=== PATIENT | female | born 1945 | race Caucasian/White ===

== ENCOUNTER 2017-04-22 10:01 | Day surgery (SDC) | payer OTHER, MEDICARE ==
[2017-04-22 10:44] VITALS: BMI 35.6
[2017-04-22] MEDS ORDERED: PROPOFOL 20 ML ONE ×2 (11:24)
[2017-04-22 12:17] VITALS: TEMP 97.6
[2017-04-22 15:21] VITALS: BP 144/86; PULSE 79
--- NOTE | 2017-04-23 17:04 | PATH ---
Surgical Pathology Report Patient Name: NICCI POTTER [facility]. Rec. #: [id number] /Age/Gender: 1945 (Age: 71) / F Account: [id number] Location: ASU-ENDOSCOPY Taken: 04/22/2017 Received: 04/22/2017 Reported: 04/23/2017 Physicians: Bassam Aburto M.D. Specimen(s) Received BX ANASTOMOSIS RIGHT SIDE Clinical History Preoperative diagnosis: Malignant tumor of colon Postoperative diagnosis: Normal anastomosis right scar, colonic retention, redundant severe diverticulosis, second degree hemorrhoids, diverticulosis descending colon Final Diagnosis ANASTOMOSIS, RIGHT, BIOPSY: SMALL BOWEL AND COLONIC MUCOSA WITH MILD CHRONIC INFLAMMATION CONSISTENT WITH ANASTOMOTIC SITE. Electronically Signed Dari Stewart M.D. Gross Description Received in formalin, labeled "biopsy anastomosis right side" are 4 alcazar, irregular portions of soft tissue ranging from 0.3-0.9 cm. in greatest dimension. The specimens are submitted in toto in one cassette. 04/22/201704/22/2017
== END 2017-04-22 13:20 | disposition home or self-care (01) ==
LOC: JASU-ENDO 10:01
PROVIDERS: ATTEND Internal Medicine Gastroenterology
PROC: 0DBB8ZX Excision of Ileum, Via Natural or Artificial Opening Endoscopic, Diagnostic (ICD-10-PCS; principal; 2017-04-22 11:00)
DX: Z12.11 Encounter for screening for malignant neoplasm of colon (principal); Z86.010 Personal history of colon polyps; K57.30 Diverticulosis of large intestine without perforation or abscess without bleeding; K64.8 Other hemorrhoids; K63.89 Other specified diseases of intestine; Z98.0 Intestinal bypass and anastomosis status
CPT/HCPCS: 88305-TC

== ENCOUNTER 2017-11-09 19:07 | Inpatient (IN) | payer OTHER, MEDICARE ==
--- NOTE | 2017-11-09 19:26 | PDOC ---
Rapid Medical Evaluation Time Seen by Provider: 11/09/17 19:23 Medical Evaluation: Allergies Allergy/AdvReac Type Severity Reaction Status Date / Time hydroxyzine HCl Allergy Verified 11/14/14 18:51 [From Vistaril] hydroxyzine pamoate Allergy Verified 11/14/14 18:51 [From Vistaril] levothyroxine sodium Allergy Vomiting Verified 11/28/14 14:57 [From Synthroid] meperidine HCl [From Demerol] Allergy Verified 11/14/14 18:51 Penicillins Allergy Verified 11/14/14 18:51 metformin AdvReac Nausea Verified 11/28/14 14:57 ADHESIVE TAPE Allergy Severe Hives Uncoded 11/28/14 14:57 11/09/17 19:24 72 year old female with Stage IV colon ca (completed chemotherapy, follows with Dr. Vargas), and AAA s/p repair with aortic stent graft 03/2015 who presents with several weeks of abdominal pain and poor appetite. Also complains of left shoulder and back pain which she describes as "minor." Outpatient abdominal u/s shows increased aneurysmal dilation of the aorta, 6.2cm in widest AP diameter. Sent by Dr. Vargas for further evaluation. -EKG -Labs -CT CAP with runoff -To Main ED for further evaluation
--- NOTE | 2017-11-09 20:32 | PDOC ---
History of Present Illness - General Chief Complaint: Pain Stated Complaint: PCP SENT Time Seen by Provider: 11/09/17 19:23 - History of Present Illness Initial Comments: 11/09/17 20:30 Ms. Schreiber is a 72 yo female w/ pmh of stage 4 colon cancer (completed chemo in May and follows w/ Dr. Vargas), s/p AAA repair w/ aortic graft in march 26, DMII, HTN, and obesity who presents on direction of Dr. Vargas for evaluation of r/o AAA problems. Patient reports she had a PET scan 3 months ago to evaluate for cancer progression which showed a AAA at approximately 4cm; US earlier this week to evaluate right sided abdominal pain she has been having recently showed 6.2 cm aorta. Ms. Schreiber also reports recent history of left shoulder pain. The patient denies chest pain, shortness of breath, headache and dizziness. Denies fever, chills, nausea, vomit, diarrhea and constipation. Denies dysuria, frequency, urgency and hematuria. Allergies: Hydroxyzine, levothyroxine, meperidine, penicillin, metformin Past History - Past Medical History Allergies/Adverse Reactions: Allergies Allergy/AdvReac Type Severity Reaction Status Date / Time hydroxyzine HCl Allergy Verified 11/09/17 19:29 [From Vistaril] hydroxyzine pamoate Allergy Verified 11/09/17 19:29 [From Vistaril] levothyroxine sodium Allergy Vomiting Verified 11/09/17 19:29 [From Synthroid] meperidine HCl [From Demerol] Allergy Verified 11/09/17 19:29 Penicillins Allergy Verified 11/09/17 19:29 metformin AdvReac Nausea Verified 11/09/17 19:29 ADHESIVE TAPE Allergy Severe Hives Uncoded 11/09/17 19:29 Home Medications: Ambulatory Orders Pravastatin Sodium [Pravachol -] 40 mg PO HS 03/18/14 Quinapril HCl [Accupril -] 10 mg PO DAILY 03/18/14 Aspirin Coated [Ecotrin -] 81 mg PO DAILY #0 tablet.ec 11/29/14 Isosorbide Mononitrate [Imdur -] 10 mg PO BID 04/11/15 Acetaminophen [Tylenol .Extra-Strength -] 1,000 mg PO Q6H PRN 11/29/17 Metoprolol Succinate [Toprol XL -] 25 mg PO DAILY 04/22/17 Thyroid [[place] Thyroid] 105 mg PO DAILY 04/22/17 Anemia: Yes Cancer: (BENIGN TUMORS LT BREAST) Cardiac Disorders: Yes (Prinzmetal angina; AAA) COPD: Yes Diabetes: No GI Disorders: Yes HTN: Yes Hypercholesterolemia: Yes Thyroid Disease: Yes (hypothyroidism, stella) - Surgical History Abdominal Surgery: Yes (HERNIA X 4; ABD. AORTA REPAIR) Cardiac Surgery: Yes (Aortic aneursym and stents in place) Neurologic Surgery: Yes (DECOMPRESSION OF TIBIA NERVE) - Immunization History Immunization Up to Date: Yes - Suicide/Smoking/Psychosocial Hx Smoking History: Former smoker Have you smoked in the past 12 months: Yes If you are a former smoker, when did you quit?: 02/2014 Information on smoking cessation initiated: No Hx Alcohol Use: No Drug/Substance Use Hx: No Substance Use Type: None Hx Substance Use Treatment: No Review of Systems - Review of Systems Comments:: 11/09/17 20:32 GENERAL/CONSTITUTIONAL: No fever or chills. No weakness. HEAD, EYES, EARS, NOSE AND THROAT: No change in vision. No ear pain or discharge. No sore throat. CARDIOVASCULAR: No chest pain or shortness of breath RESPIRATORY: No cough, wheezing, or hemoptysis. GASTROINTESTINAL: +Right sided abdominal pain for "a few weeks." No nausea, vomiting, diarrhea or constipation. GENITOURINARY: No dysuria, frequency, or change in urination. MUSCULOSKELETAL: +1-2 weeks of left shoulder/back pain. No joint or muscle swelling or pain. SKIN: No rash NEUROLOGIC: No headache, vertigo, loss of consciousness, or change in strength/ sensation. ENDOCRINE: No increased thirst. No abnormal weight change HEMATOLOGIC/LYMPHATIC: No anemia, easy bleeding, or history of blood clots. ALLERGIC/IMMUNOLOGIC: No hives or skin allergy. *Physical Exam - Vital Signs Last Vital Signs Temp Pulse Resp BP Pulse Ox 98.9 F 94 H 18 152/92 96 11/09/17 19:21 11/09/17 19:21 11/09/17 19:21 11/09/17 19:21 11/09/17 19:21 - Physical Exam Comments: 11/09/17 20:32 GENERAL: +Patient morbidly obese. Awake, alert, and fully oriented, in no acute distress HEAD: No signs of trauma, normocephalic, atraumatic EYES: PERRLA, EOMI, sclera anicteric, conjunctiva clear ENT: Auricles normal inspection, hearing grossly normal, nares patent, oropharynx clear without exudates. Moist mucosa NECK: Normal ROM, supple, no lymphadenopathy, JVD, or masses LUNGS: No distress, speaks full sentences, clear to auscultation bilaterally HEART: Regular rate and rhythm, normal S1 and S2, no murmurs, rubs or gallops, peripheral pulses normal and equal bilaterally. ABDOMEN: +Significant scarring from previous procedures. Soft, nontender, normoactive bowel sounds. No guarding, no rebound. No masses EXTREMITIES: Normal inspection, Normal range of motion, no edema. No clubbing or cyanosis. NEUROLOGICAL: Cranial nerves II through XII grossly intact. Normal speech, normal gait, no focal sensorimotor deficits SKIN: Warm, Dry, normal turgor, no rashes or lesions noted. ED Treatment Course - LABORATORY CBC & Chemistry Diagram: 11/10/17 08:10 11/10/17 08:10 Medical Decision Making - Medical Decision Making 11/09/17 23:53 Ms. Schreiber is a 72 yo female w/ pmh as described who presents for evaluation of previously noted AAA. Patient noted to have difference of systolic blood pressure of 30 points (160 left arm, 190 right arm). Workup started for evaluation of AAA. BP lowered with labetalol 5 to 140's systolic. Patient signed off to Dr. Box for further evaluation. *DC/Admit/Observation/Transfer Diagnosis at time of Disposition: Leg pain Qualifiers: Laterality: right Qualified Code(s): M79.604 - Pain in right leg Back pain Qualifiers: Back pain location: low back pain Chronicity: acute Back pain laterality: right Sciatica presence: without sciatica Qualified Code(s): M54.5 - Low back pain - Discharge Dispostion Condition at time of disposition: Stable - Referrals - Patient Instructions - Post Discharge Activity
--- NOTE | 2017-11-09 20:44 | PDOC ---
Attending Attestation - HPI HPI: 11/09/17 20:59 The patient is a 72 year old female, with a significant past medical history of Stage IV colon ca (completed chemotherapy), and AAA s/p repair with aortic stent graft (03/2015), who presents to the emergency department with, abdominal pain and decreased appetite. As per patient, she has had an outpatient abdominal ultrasound which depicted an increased aneurysmal dilation of her aorta which was 6.2 cm in the widest AP diameter. She reports left shoulder and back pain, which she considers as minimal. The patient was sent over by Dr. Vargas for further evaluation. She denies recent fevers, chills, headache or dizziness. She denies recent nausea, vomit, diarrhea or constipation. She denies recent dysuria, frequency, urgency or hematuria. She denies recent chest pain or shortness of breath. Social history: Former smoker. Denies EtOH use and recreational drug use. <Saadia Del Toro - Last Filed: 11/09/17 20:59> - Resident Resident Name: Martin Candelario - ED Attending Attestation I have performed the following: I have examined & evaluated the patient, The case was reviewed & discussed with the resident, I agree w/resident's findings & plan, Exceptions are as noted - Physicial Exam PE: 11/09/17 20:45 *Physical Exam General Appearance: Yes: Appropriately Dressed. No: Apparent Distress, Intoxicated HEENT: positive: EOMI, SINAN, Normal ENT Inspection, Normal Voice, TMs Normal, Pharynx Normal. negative: Pale Conjunctivae, Photophobia, Scleral Icterus (R), Scleral Icterus (L) Neck: positive: Trachea midline, Normal Thyroid, Supple. negative: Tender, Rigid, Carotid bruit, Stridor, Lymphadenopathy (R), Lymphadenopathy (L), Thyromegaly Respiratory/Chest: positive: Lungs Clear, Normal Breath Sounds. negative: Chest Tender, Respiratory Distress, Accessory Muscle Use, Labored Respiration, RES, Crackles, Rales, Rhonchi, Stridor, Wheezing, Dullness Cardiovascular: positive: Regular Rhythm, Regular Rate, S1, S2. negative: Edema , JVD, Murmur, Bradycardia, Tachycardia Vascular Pulses: Dorsalis-Pedis (R): 2+, Doralis-Pedis (L): 2+ Gastrointestinal/Abdominal: positive: Normal Bowel Sounds, Flat, Soft. negative : Tender, Organomegaly, Pulsatile Mass, Increased Bowel Sounds, Decreased BS, Distended, Guarding, Rebound, Hernia, Hepatomegaly, Spleenomegaly Lymphatic: negative: Adenopathy, Tenderness Musculoskeletal: positive: Normal Inspection. negative: CVA Tenderness, Decreased Range of Motion Extremity: positive: Normal Capillary Refill, Normal Inspection, Normal Range of Motion, Pelvis Stable. negative: Tender, Pedal Edema, Swelling, Erythema Integumentary: positive: Normal Color, Dry, Warm. negative: Cyanotic, Erythema , Jaundice, Rash Neurologic: positive: director of outside sales II-XII NML intact, Fully Oriented, Alert, Normal Mood/ Affect, Motor Strength 5/5. negative: EOM Palsy, Facial Droop, Sensory Deficit - Medical Decision Making 11/10/17 19:23 Pt was admitted for further care <Dean Rousseau - Last Filed: 11/10/17 19:23> Attestations - Attestations 11/09/17 20:59 Documentation prepared by Saadia Del Toro, acting as nuclear medicine medical director for Dean Rousseau DO. <Saadia Del Toro - Last Filed: 11/09/17 20:59>
[2017-11-09] MEDS ORDERED: LABETALOL HCL 5 MG/1 ML (100MG/20 ML VIAL) IVPUSH ONE (20:48)
[2017-11-09 21:09] LABS: BASO % 0.9 % (0-2.0); EOS % 3.2 % (0-4.5); HEMATOCRIT 38.4 % (32.4-45.2); HEMOGLOBIN 12.9 GM/dL (10.7-15.3); LYMPH % 18.8 % (8-40); MCH 31.3 pg (25.7-33.7); MCHC 33.7 g/dl (32.0-36.0); MEAN CELL VOLUME 93.1 fl (80-96); MEAN PLT VOLUME 7.6 fl (7.5-11.1); MONO % 8.8 % (3.8-10.2); NEUT % 68.3 % (42.8-82.8); PLATELET COUNT 228 K/MM3 (134-434); RBC 4.13 M/mm3 (3.60-5.2); RDW 14.9 % (11.6-15.6); WHITE BLOOD COUNT 6.3 K/mm3 (4.0-10.0)
[2017-11-09 21:35] LABS: INR 1.1 (0.82-1.09); PROTHROMBIN TIME (PATIENT) 12.4 SEC (9.7-13.0)
[2017-11-09 21:57] LABS: ALBUMIN 3.7 g/dl (3.4-5.0); ANION GAP 9 (8-16); BLOOD UREA NITROGEN 12 mg/dL (7-18); CALCIUM 9.6 mg/dL (8.5-10.1); CHLORIDE 101 mmol/L (98-107); CO2 26 mmol/L (21-32); CREATININE 0.8 mg/dL (0.55-1.02); GLUCOSE,RANDOM 81 mg/dL (74-106); POTASSIUM 4.3 mmol/L (3.5-5.1); SGOT/AST 51 U/L (15-37); SGPT/ALT 46 U/L (12-78); SODIUM 136 mmol/L (136-145); TOT PROT 8.2 g/dl (6.4-8.2)
[2017-11-09 22:23] LABS: ALK PHOS 86 U/L (45-117); BILIRUBIN,TOTAL 0.3 mg/dL (0.2-1.0)
--- NOTE | 2017-11-10 01:28 | HP ---
CHIEF COMPLAINT: R-sided abdominal pain PCP: Not on staff HISTORY OF PRESENT ILLNESS: 72 yo female with pmh of stage 4 cancer (finished chemo in may 2017), AAA repair with graft (Mar 2015), DM2, HTN, who presents with two weeks of persistent R sided abdominal pain. Pt states she began having sharp R sided abdominal pain two weeks ago, sharp with associated burning sensation, in addition to accompanying L shoulder pain. She states that laying down tends to alleviate pain, but prolonged immobilization worsens the pain. No other radiation, exacerbating/alleviating factors. Pain is not associated with food. Of note, pt received abdominal u/s one week ago per Dr. Vargas for further evaluation of abdominal pain, notable for AAA of 6.2cm diameter, an increase from 4.9cm on prior PET scan 3 months ago. Pt presented to ED for further imaging evaluation of abdominal pain per Dr. Vargas given recent imaging findings. Pt also endorses 10 months of worsening diffuse claudication in R leg , worsened by exercise and occurring after half a block of ambulation. Pt only takes ASA for AC. Pt denies FERNANDEZ, vision changes, chest pain, SOB, N/V, fever/chills, cough, back pain, dysuria, hematuria, melena, hematochezia, diarrhea, FNDs. She does endorse occasional LE swelling in R leg due to venous insufficiency and infrequent loose bowels. ER course was notable for: (1)No lab abnormalities (2)R arm BP 191/92, L arm BP 160/107; received 5mg IV labetalol with correction to 140s systolic (3)Chest/Abdominal CTA Recent Travel: None PAST MEDICAL HISTORY: HTN DM2 Stage 4 colon Ca (chemo in May) AAA repair in Mar 2015 Obesity Jeniffer hypothyroidism HLD Anemia PAST SURGICAL HISTORY: Hernias x4 AAA repair Decompression of tibial nerve Social History: Smoking: Former smoker, 10 years ago Alcohol: Denies Drugs: Denies Family History: [place] Allergies hydroxyzine HCl [From Vistaril] Allergy (Verified 11/09/17 19:29) hydroxyzine pamoate [From Vistaril] Allergy (Verified 11/09/17 19:29) levothyroxine sodium [From Synthroid] Allergy (Verified 11/09/17 19:29) Vomiting meperidine HCl [From Demerol] Allergy (Verified 11/09/17 19:29) Penicillins Allergy (Verified 11/09/17 19:29) metformin Adverse Reaction (Verified 11/09/17 19:29) Nausea ADHESIVE TAPE Allergy (Severe, Uncoded 11/09/17 19:29) Hives HOME MEDICATIONS: Home Medications Medication Instructions Recorded Pravastatin Sodium [Pravachol -] 40 mg PO HS 03/18/14 Quinapril HCl [Accupril -] 10 mg PO BID 03/18/14 Aspirin Coated [Ecotrin -] 81 mg PO DAILY #0 tablet.ec 11/29/14 Isosorbide Mononitrate [Imdur -] 10 mg PO DAILY 04/11/15 Acetaminophen [Tylenol 1,000 mg PO Q6H PRN 04/22/17 .Extra-Strength -] Metoprolol Succinate [Toprol XL -] 12.5 mg PO BID 04/22/17 Thyroid [[place] Thyroid] 90 mg PO DAILY 04/22/17 REVIEW OF SYSTEMS CONSTITUTIONAL: Absent: fever, chills, diaphoresis, generalized weakness, malaise, loss of appetite, weight change HEENT: Absent: rhinorrhea, nasal congestion, throat pain, throat swelling, difficulty swallowing, mouth swelling, ear pain, eye pain, visual changes CARDIOVASCULAR: + claudications Absent: chest pain, syncope, palpitations, irregular heart rate, lightheadedness , peripheral edema RESPIRATORY: Absent: cough, shortness of breath, dyspnea with exertion, orthopnea, wheezing, stridor, hemoptysis GASTROINTESTINAL: +abdominal pain Absent: abdominal distension, nausea, vomiting, diarrhea, constipation, melena , hematochezia GENITOURINARY: Absent: dysuria, frequency, urgency, hesitancy, hematuria, flank pain, genital pain MUSCULOSKELETAL: + L shoulder pain Absent: myalgia, arthralgia, joint swelling, back pain, neck pain SKIN: Absent: rash, itching, pallor HEMATOLOGIC/IMMUNOLOGIC: Absent: easy bleeding, easy bruising, lymphadenopathy, frequent infections ENDOCRINE: Absent: unexplained weight gain, unexplained weight loss, heat intolerance, cold intolerance NEUROLOGIC: Absent: headache, focal weakness or paresthesias, dizziness, unsteady gait, seizure, mental status changes, bladder or bowel incontinence PSYCHIATRIC: Absent: anxiety, depression, suicidal or homicidal ideation, hallucinations. PHYSICAL EXAMINATION Vital Signs - 24 hr 11/09/17 11/09/17 11/09/17 19:08 19:21 21:04 Temperature 98.9 F Pulse Rate 94 H Pulse Rate [ 97 H 99 H Radial] Respiratory 17 18 17 Rate Blood Pressure 152/92 Blood Pressure 160/107 [Left Arm] Blood Pressure 191/92 [Right Arm] O2 Sat by Pulse 96 98 Oximetry (%) GENERAL: Elderly obese woman, Awake, alert, and fully oriented, in no acute distress. HEAD: Normal with no signs of trauma. EYES: Pupils equal, round and reactive to light, extraocular movements intact, sclera anicteric, conjunctiva clear. No lid lag. EARS, NOSE, THROAT: Ears normal, nares patent, oropharynx clear without exudates. Moist mucous membranes. NECK: Normal range of motion, supple without lymphadenopathy, JVD, or masses. LUNGS: Breath sounds equal, clear to auscultation bilaterally. No wheezes, and no crackles. No accessory muscle use. HEART: Regular rate and rhythm, normal S1 and S2 without murmur, rub or gallop. ABDOMEN: TTP in RUQ/RLQ. Soft, not distended, normoactive bowel sounds, no guarding, no rebound, no masses. No hepatomegaly or splenomegaly. MUSCULOSKELETAL: Normal range of motion at all joints. No bony deformities or tenderness. No CVA tenderness. UPPER EXTREMITIES: 2+ pulses, warm, well-perfused. No cyanosis. No clubbing. No peripheral edema. LOWER EXTREMITIES: 1+ DP, PT pulse on R leg. 2+ DP/PT pulses on L leg. warm, well-perfused. No calf tenderness. No peripheral edema. NEUROLOGICAL: Cranial nerves II-XII intact. Normal speech. Gait not evaluated. Slight decreased sensation to palpation of dorsal surface of R foot. PSYCHIATRIC: Cooperative. Good eye contact. Appropriate mood and affect. SKIN: Warm, dry, normal turgor, no rashes or lesions noted, normal capillary refill. Laboratory Results - last 24 hr CBC, BMP 11/09/17 20:53 11/09/17 20:53 11/09/17 11/09/17 11/09/17 20:53 20:53 20:53 WBC 6.3 RBC 4.13 D Hgb 12.9 D Hct 38.4 D MCV 93.1 MCH 31.3 D MCHC 33.7 RDW 14.9 D Plt Count 228 D MPV 7.6 Absolute Neuts (auto) 4.3 Neutrophils % 68.3 Lymphocytes % 18.8 Monocytes % 8.8 Eosinophils % 3.2 Basophils % 0.9 Nucleated RBC % 0 PT with INR 12.40 INR 1.10 Sodium 136 Potassium 4.3 Chloride 101 Carbon Dioxide 26 Anion Gap 9 BUN 12 Creatinine 0.8 Creat Clearance w eGFR > 60 Random Glucose 81 Calcium 9.6 Total Bilirubin 0.3 AST 51 H ALT 46 Alkaline Phosphatase 86 Troponin I < 0.02 Total Protein 8.2 Albumin 3.7 Blood Type Antibody Screen 11/09/17 20:53 WBC RBC Hgb Hct MCV MCH MCHC RDW Plt Count MPV Absolute Neuts (auto) Neutrophils % Lymphocytes % Monocytes % Eosinophils % Basophils % Nucleated RBC % PT with INR INR Sodium Potassium Chloride Carbon Dioxide Anion Gap BUN Creatinine Creat Clearance w eGFR Random Glucose Calcium Total Bilirubin AST ALT Alkaline Phosphatase Troponin I Total Protein Albumin Blood Type B POSITIVE Antibody Screen Negative No cultures Thoracic/Abdominal CTA - IMPRESSION: No definite interval change is identified in comparison to a prior CT study of 12/04/2014. There is no CT evidence of aortic aneurysm or dissection. At least moderate atherosclerotic coronary artery calcifications are noted. IMPRESSION: In comparison to a prior CT study 12/04/2014 note is again made of endovascular repair of an infrarenal aortic aneurysm. The right iliac portion of the stent graft demonstrates interval thrombosis. The aneurysm sac appears mildly diminished in size currently measuring 5.3 cm, previously 5.7 cm. Interval resection of neoplastic disease is seen involving the ascending colon. There has been interval resolution of a necrotic 3.7 cm paracaval retroperitoneal lymph node. Development of a small to moderate periumbilical hernia is seen containing fat only. A possible 1 cm hypodense pancreatic head lesion described on MRI of 12/08/2014 cannot be appreciated on the current exam. Correlation with follow-up nonemergent contrast-enhanced MRI is suggested. Diffuse hepatic steatosis. Stable 1 cm right hepatic lobe cyst. ASSESSMENT/PLAN: 72 yo female with pmh of stage 4 cancer (finished chemo in may 2017), AAA repair with graft (Mar 2015), DM2, HTN, who presents with two weeks of persistent R sided abdominal pain. Abdominal CT notable for R iliac artery graft thrombosis. Plan for heparin gtt and vascular consult in the morning for further management. Currently with preserved perfusion of R LE. 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 Fuller - Serial pulse checks q4h - consider arterial doppler to evaluate distal blood flow #Abdominal pain - likely secondary to AAA, R iliac occlusion - Pain control with PO tylenol - vascular surgery consulted - Zofran PRN #Mass in head of pancreas - as noted above - GI consult - will likely require outpt f/u - consider abdominal MRI for further evaluation #HTN - c/w home HTN meds #HLD - c/w home statin #DM2 - A1C - ISS - BGM q4h #Hypothyroidism - c/w home synthroid PPX Heparin gtt FEN PO fluids Daily lytes Diabetic diet Plan discussed with attending, Dr. Micheline Coulter, PGY1 Visit type - Emergency Visit Emergency Visit: Yes ED Registration Date: 11/10/17 Care time: The patient presented to the Emergency Department on the above date and was hospitalized for further evaluation of their emergent condition. - New Patient This patient is new to me today: Yes Date on this admission: 11/12/17 - Critical Care Critical Care patient: No Hospitalist Screening - Colonoscopy Questionnaire Colonoscopy Questionnaire: Colonoscopy Questionnaire - Patient: 50 - 75 years old and never had a screening colonoscopy: Unknown History of colon or rectal polyps, or CA: Unknown History of IBD, Crohn's disease or UC: Unknown History of abdominal radiation therapy as a child: Unknown - Relative: 1 with colon or rectal CA, or polyps at age 60 or younger: Unknown Colon or rectal CA diagnosed at age 45 or younger: Unknown Multiple relatives with colon or rectal CA: Unknown - Outcome: Screening Result: Negative Screen
--- NOTE | 2017-11-10 01:42 | PDOC ---
*Physical Exam - Vital Signs Last Vital Signs Temp Pulse Resp BP Pulse Ox 98.9 F 99 H 17 160/107 98 11/09/17 19:21 11/09/17 21:04 11/09/17 21:04 11/09/17 21:04 11/09/17 21:04 ED Treatment Course - LABORATORY CBC & Chemistry Diagram: 11/09/17 20:53 11/09/17 20:53 - ADDITIONAL ORDERS Additional order review: Laboratory Results 11/09/17 11/09/17 11/09/17 20:53 20:53 20:53 PT with INR 12.40 INR 1.10 Sodium 136 Potassium 4.3 Chloride 101 Carbon Dioxide 26 Anion Gap 9 BUN 12 Creatinine 0.8 Creat Clearance w eGFR > 60 Random Glucose 81 Calcium 9.6 Total Bilirubin 0.3 AST 51 H ALT 46 Alkaline Phosphatase 86 Troponin I < 0.02 Total Protein 8.2 Albumin 3.7 Blood Type B POSITIVE Antibody Screen Negative 11/09/17 20:53 RBC 4.13 D MCV 93.1 MCHC 33.7 RDW 14.9 D MPV 7.6 Neutrophils % 68.3 Lymphocytes % 18.8 Monocytes % 8.8 Eosinophils % 3.2 Basophils % 0.9 - Medications Given in the ED: ED Medications Discontinued Medications Generic Name Dose Route Start Last Admin Trade Name Freq PRN Reason Stop Dose Admin Labetalol HCl 5 mg 11/09/17 20:48 11/09/17 21:31 Normodyne Injection - IVPUSH 11/09/17 20:49 5 mg ONCE ONE Administration Medical Decision Making - Medical Decision Making Patient signed out pending CT read. There was notation of a new right iliac thrombosis but according to Dr. Garsia she had a bypass because of this. Patient is having symptoms on that side so this could be the reason for her pain. Per Dr. Garsia we deferred initiation of heparin. Patient admitted under Dr. oTbias for obs. 11/10/17 01:37 *DC/Admit/Observation/Transfer Diagnosis at time of Disposition: Leg pain Qualifiers: Laterality: right Qualified Code(s): M79.604 - Pain in right leg Back pain Qualifiers: Back pain location: low back pain Chronicity: acute Back pain laterality: right Sciatica presence: without sciatica Qualified Code(s): M54.5 - Low back pain - Discharge Dispostion Condition at time of disposition: Stable Decision to Admit order: Yes - Referrals - Patient Instructions - Post Discharge Activity
[2017-11-10] MEDS ORDERED: ACETAMINOPHEN 500 MG TABLET (FP) PO PRN (03:00)
[2017-11-10] MEDS ORDERED: HEPARIN NA (PORCINE) 5,000 UNITS/ML 1ML VIAL IVPUSH PRN ×2 (03:06)
[2017-11-10] MEDS ORDERED: HEPARIN SOD,PORK IN 0.45% NACL 25,000 UNITS/500 ML INFUS.BAG IVPB SCH (03:15)
[2017-11-10] MEDS ORDERED: ONDANSETRON 4 MG/2 ML VIAL IVPUSH PRN (03:20)
--- NOTE | 2017-11-10 03:42 | PN ---
Teaching Attending Note Name of Resident: Manan Coulter ATTENDING PHYSICIAN STATEMENT I saw and evaluated the patient. I reviewed the resident's note and discussed the case with the resident. I agree with the resident's findings and plan as documented. SUBJECTIVE: Patient is a 72 year old woman with pmh of stage 4 colon cancer (finished chemo in may 2017; s/p resection), AAA repair with graft (Mar 2015), DM2, HTN, who presents with two weeks of persistent R sided abdominal pain. She began having sharp R sided abdominal pain two weeks ago, with associated burning sensation, in addition to left shoulder pain. Lying down tends to alleviate pain, but prolonged immobilization worsens the pain. She had an abdominal sosnogram one week ago (per Dr. Vargas) for further evaluation of abdominal pain, notable for AAA of 6.2cm diameter, an increase from 4.9cm on prior PET scan 3 months ago. Patient presented to ED for further imaging evaluation of abdominal pain per Dr. Vargas given recent imaging findings. OBJECTIVE: Alert and in no acute distress Vital Signs Period Temp Pulse Resp BP Sys/Bey Pulse Ox Last 24 Hr 98.9 F 94-99 17-18 152-191/92-107 96-98 HEENT: No Jaundice, eye redness or discharge, PERRLA, EOMI. Normocephalic, atraumatic. External ears are normal and hearing is grossly intact. No nasal discharge. Neck: Supple, nontender. No palpable adenopathy or thyromegaly. No JVD Chest: Good effort. Clear to auscultation and percussion. Heart: Regular. No S3, rub or murmur Abdomen: Not distended, soft, RLQ and RUQ tenderness; no HSM. No rebound or guarding. Normoactive bowel sounds. Ext: Peripheral pulses intact. No leg edema. Skin: Warm and dry. No petechiae, rash or ecchymosis. Neuro: Alert. Oriented x3. CN 2-12 grossly intact. Sensation grossly intact in all four extremities and DTR are symmetric. Current Medications Generic Name Dose Route Start Last Admin Trade Name Freq PRN Reason Stop Dose Admin Acetaminophen 1,000 mg 11/10/17 03:00 Tylenol - PO Q6H PRN PAIN Aspirin 81 mg 11/10/17 10:00 Ecotrin - PO DAILY ADILIA Heparin Sodium (Porcine) 1,000 unit 11/10/17 03:06 Heparin - IVPUSH PRN PRN Heparin Heparin Sodium (Porcine) 5,000 unit 11/10/17 03:06 Heparin - IVPUSH PRN PRN Heparin Heparin Sodium (Porcine) 25, 500 mls @ 20 mls/hr 11/10/17 03:15 000 unit/ Sodium Chloride IV TITR [facility] Protocol 1,000 UNIT/HR Insulin Aspart 1 vial 11/10/17 07:00 Novolog Vial Sliding Scale - SQ ACHS [facility] Protocol Isosorbide Mononitrate 10 mg 11/10/17 10:00 Imdur - PO DAILY [facility] Metoprolol Succinate 12.5 mg 11/10/17 10:00 Toprol Xl - PO BID [facility] Non-Formulary Medication 40 mg 11/10/17 22:00 Pravastatin Sodium PO HS [facility] Ondansetron HCl 4 mg 11/10/17 03:20 Zofran Injection IVPUSH Q6H PRN NAUSEA Quinapril HCl 10 mg 11/10/17 10:00 Accupril - PO BID [facility] Thyroid 90 mg 11/10/17 10:00 [place] Thyroid - PO DAILY [facility] Home Medications Medication Instructions Recorded Pravastatin Sodium [Pravachol -] 40 mg PO HS 03/18/14 Quinapril HCl [Accupril -] 10 mg PO BID 03/18/14 Aspirin Coated [Ecotrin -] 81 mg PO DAILY #0 tablet.ec 11/29/14 Isosorbide Mononitrate [Imdur -] 10 mg PO DAILY 04/11/15 Acetaminophen [Tylenol 1,000 mg PO Q6H PRN 04/22/17 .Extra-Strength -] Metoprolol Succinate [Toprol XL -] 12.5 mg PO BID 04/22/17 Thyroid [[place] Thyroid] 90 mg PO DAILY 04/22/17 Abnormal Lab Results 11/09/17 20:53 AST 51 H ASSESSMENT AND PLAN: 1. Right Iliac Stent Thrombosis - CTA of chest, abdomen and pelvis showed right iliac stent thrombosis. Will commence full dose IV heparin for anticoagulation, consult [facility]/Onc and vascular surgery. Tylenol for pain control. There was no dissection of aortic aneurysm but she has hepatic steatosis, a nodule in the head of the pancreas and cyst in the right lobe of the liver. Will consult GI for further workup. 2. DM - Sliding scale insulin coverage. 3. Uncontrolled hypertension - Adjust antihypertensive regimen to attain normotension. 4. DVT prophylaxis - On IV Heparin drip 5. Advance directives - Full code
[2017-11-10 05:26] VITALS: BMI 38.3
[2017-11-10] MEDS: INSULIN SLIDING SCALE (NOVOLOG) 1 VIAL SQ SCH ×3 (06:55→16:46)
[2017-11-10 08:27] LABS: BASO % 0.7 % (0-2.0); EOS % 2.3 % (0-4.5); HEMATOCRIT 36.9 % (32.4-45.2); HEMOGLOBIN 12.4 GM/dL (10.7-15.3); LYMPH % 23.7 % (8-40); MCH 31.5 pg (25.7-33.7); MCHC 33.7 g/dl (32.0-36.0); MEAN CELL VOLUME 93.3 fl (80-96); MEAN PLT VOLUME 7.5 fl (7.5-11.1); MONO % 8.7 % (3.8-10.2); NEUT % 64.6 % (42.8-82.8); PLATELET COUNT 192 K/MM3 (134-434); RBC 3.95 M/mm3 (3.60-5.2); RDW 14.9 % (11.6-15.6); WHITE BLOOD COUNT 5.5 K/mm3 (4.0-10.0)
[2017-11-10 08:44] LABS: INR 1.18 (0.82-1.09); PROTHROMBIN TIME (PATIENT) 13.3 SEC (9.7-13.0)
[2017-11-10 08:46] LABS: ACTIVATED PTT 32.5 SECONDS (25.2-36.5)
[2017-11-10 08:55] LABS: ALBUMIN 3.4 g/dl (3.4-5.0); ANION GAP 11 (8-16); BLOOD UREA NITROGEN 10 mg/dL (7-18); CHLORIDE 100 mmol/L (98-107); CO2 24 mmol/L (21-32); GLUCOSE,RANDOM 137 mg/dL (74-106); SGPT/ALT 40 U/L (12-78); SODIUM 135 mmol/L (136-145)
[2017-11-10 08:58] LABS: ALK PHOS 67 U/L (45-117); BILIRUBIN,TOTAL 0.4 mg/dL (0.2-1.0); CALCIUM 8.8 mg/dL (8.5-10.1); CREATININE 0.9 mg/dL (0.55-1.02); TOT PROT 7.5 g/dl (6.4-8.2)
[2017-11-10 09:06] LABS: POTASSIUM 4.3 mmol/L (3.5-5.1); SGOT/AST 50 U/L (15-37)
[2017-11-10] MEDS ORDERED: PT OWN MED DRAWER 7, Y5N ONE (09:19)
[2017-11-10] MEDS ORDERED: metoPROLOL SUCCINATE 25 MG TAB.SR.24H (FP) PO SCH (10:00)
[2017-11-10] MEDS ORDERED: THYROID 30 MG TABLET PO SCH (10:00)
[2017-11-10] MEDS ORDERED: ISOSORBIDE MONONITRATE 10 MG TABLET PO SCH (10:00)
[2017-11-10] MEDS ORDERED: ASPIRIN COATED 81 MG TABLET.EC PO SCH (10:00)
[2017-11-10] MEDS ORDERED: QUINAPRIL HCL 10 MG TABLET (FP) PO SCH (10:00)
[2017-11-10 13:38] VITALS: BP 128/65; PULSE 85; TEMP 97.7
--- NOTE | 2017-11-10 14:32 | PN ---
Teaching Attending Note Name of Resident: Monisha Villalobos ATTENDING PHYSICIAN STATEMENT I saw and evaluated the patient. I reviewed the resident's note and discussed the case with the resident. I agree with the resident's findings and plan as documented. SUBJECTIVE: No fever or chills. some discomfort in RUQ. intermittent . no relationto MB, gas and food ( twice it came 15 min after meals ). no fever or chills . saw Dr. Vargas a week ago, US wa done , report reviewed no obstruction or cholecystitis . no diarrhea , no fever OBJECTIVE: NAD Cv : RRR lungs: CTAB Abd: soft, Minimal TTP in RUQ, neg Serrato;s . NL Bs . Ext: no edema ski: hump on upper back, telenjectasia on skin, face round, striae on abd . ASSESSMENT AND PLAN: 72 y/o lady with h/o stage 4 colon cancer , s/p resection and chemoa , AAA repair and graft , DM and HTN who presented with RUQ pain ( sent by Dr. Vargas ) 1- RUQ pain , no clear etiology. No elation to food , gas, BMs or movement. No masses in liver on CT scan. Neg Serrato's . US done a week ago with no evidence of cholecystitis. LFTs are normal ( except for slightly elevated LA of 50 ) . no signs of sepsis . acute cholecystitis is not suspected. - GI eval inprogress. - repeat US 2- h/o infrarenal AAA repair , with thrombosis of iliac stent graft on CTA. this was d/w Dr. christina by team. no AC was recommended. per him this thrombosis was present in past - dc heparin gtt 3- h/o Jeniffer's : cont moustapha rodas advised to follow with endocrine to test for Cindy's given her body features and not being on steroids ( hump on upper back, telenjectasia on skin, face round, striae on abd , central obesity ) 4- HTn: conthome meds dispo : after GI eval, might dc home
--- NOTE | 2017-11-10 14:32 | CON.GI ---
Consult Consult Specialty:: Gastroenterology Referred by:: Dr. Tobias Reason for Consultation:: Pancreatic lesion - History of Present Illness Chief Complaint: Right Abdominal pain History of Present Illness: Patent is a 72 year old female who presented to the ED complaining of sharp and burning, nonradiating, intermittent right lower and upper abdominal pain that initially started two weeks ago. She reports the pain occurs every 1-2 two days , once a day and lasts between 5-20 minutes. Over the past week she reports the pain intensified from a 3-4 to a 5-6 with no alleviating or exacerbating factors, which prompted her to go see her oncologist, Dr. Vargas. Dr. Vargas wanted to do an U/S due to her history of AAA and history of colon cancer. U/S revealed a 6.6 cm AAA, which increased from previous one in July 2016 that showed 4.9. Patient was then told by Dr. Vargas to come to the emergency department last night. Last colonoscopy and endoscopy performed Mar 2017, which revealed diverticulosis and internal hemorrhoids. Patient's last CEA (10/2017) increased to 3.5 Patient otherwise denies fever, chills, chest pain, palpitations, shortness of breath, fatigue, joint pain, rash, jaundice, hematochezia, hematemesis, hematuria, melena, dark urine, dysuria, frequency, urgency, diarrhea, recent antibiotic use. Patient denies any history of hepatitis or autoimmune disorders. - History Source History Provided By: Patient Limitations to Obtaining History: No Limitations - Past Medical History Cardio/Vascular: Yes: HTN, Hyperlipdemia Gastrointestinal: Yes: Other (rectovaginal fistula s/p repair) ...: No Endocrine: Yes: Diabetes Mellitus, Hypothyroidism (Jeniffer's thyroiditis) - Past Surgical History Past Surgical History: Yes: AAA Repair (04/07), Bypass (fem-pop 04/07 following AAA repair secondary to punctured artery), Cataract Removal, Hernia Repair, Hysterectomy - Alcohol/Substance Use Hx Alcohol Use: No - Smoking History Smoking history: Former smoker Have you smoked in the past 12 months: Yes If you are a former smoker, when did you quit?: 02/2014 - Social History ADL: Independent Occupation: Retired nurse History of Recent Travel: No <Maryanne Guzman - Last Filed: 11/10/17 17:08> Home Medications <Maryanne Guzman - Last Filed: 11/10/17 17:08> <Collins Bowen - Last Filed: 11/10/17 17:41> - Allergies Allergies/Adverse Reactions: Allergies Allergy/AdvReac Type Severity Reaction Status Date / Time hydroxyzine HCl Allergy Verified 11/09/17 19:29 [From Vistaril] hydroxyzine pamoate Allergy Verified 11/09/17 19:29 [From Vistaril] levothyroxine sodium Allergy Vomiting Verified 11/09/17 19:29 [From Synthroid] meperidine HCl [From Demerol] Allergy Verified 11/09/17 19:29 Penicillins Allergy Verified 11/09/17 19:29 metformin AdvReac Nausea Verified 11/09/17 19:29 ADHESIVE TAPE Allergy Severe Hives Uncoded 11/09/17 19:29 - Home Medications Home Medications: Ambulatory Orders Pravastatin Sodium [Pravachol -] 40 mg PO HS 03/18/14 Quinapril HCl [Accupril -] 10 mg PO DAILY 03/18/14 Aspirin Coated [Ecotrin -] 81 mg PO DAILY #0 tablet.ec 11/29/14 Isosorbide Mononitrate [Imdur -] 10 mg PO BID 04/11/15 Metoprolol Succinate [Toprol XL -] 25 mg PO DAILY 04/22/17 Thyroid [[place] Thyroid] 90 mg PO DAILY 04/22/17 Family Disease History - Family Disease History Family Disease History: Heart Disease: Father (CVA, heart disease), Mother, Sister (AAA), CA: Brother (throat cancer) <Maryanne Guzman - Last Filed: 11/10/17 17:08> Review of Systems - Review of Systems Constitutional: reports: No Symptoms. denies: Chills, Diaphoresis, Fever HENT: denies: Difficult Swallowing, Mouth Swelling Neck: reports: No Symptoms. denies: Tenderness Cardiovascular: reports: No Symptoms. denies: Chest Pain, Edema, Palpitations, Shortness of Breath Respiratory: reports: No Symptoms. denies: Cough, Hemoptysis, SOB, SOB on Exertion, Wheezing Gastrointestinal: reports: Abdominal Pain. denies: Bloating, Constipation, Dysphagia, Nausea, Rectal Bleeding, Vomiting, Vomiting Blood Genitourinary: reports: No Symptoms. denies: Burning, Discharge, Dysuria, Flank Pain Neurological: reports: No Symptoms. denies: Change in LOC, Confusion, Numbness <GreggestelaMaryanne - Last Filed: 11/10/17 17:08> Physical Exam-GI Vital Signs: Vital Signs Temperature 97.7 F 11/10/17 13:37 Pulse Rate 85 11/10/17 13:37 Respiratory Rate 20 11/10/17 13:37 Blood Pressure 128/65 11/10/17 13:37 O2 Sat by Pulse Oximetry (%) 95 11/10/17 09:00 Constitutional: Yes: Well Nourished, No Distress, Calm Eyes: Yes: Conjunctiva Clear, PERRL. No: Sclera Icterus HENT: Yes: WNL, Atraumatic, Normocephalic. No: Nasal Congestion, Pharyngeal Erythema Neck: Yes: WNL, Supple, Trachea Midline. No: Lymphadenopathy Cardiovascular: Yes: WNL, Regular Rate and Rhythm, S1, S2. No: Bruit, JVD Respiratory: Yes: WNL, Regular, CTA Bilaterally. No: Accessory Muscle Use, Rales, Rhonchi, Wheezes Gastrointestinal Inspection: Yes: Scars (bilateral linear groin incisional scars in the Vertical periumbilical and above umbilical scars). No: Distention ...Auscultate: Yes: Normoactive Bowel Sounds ...Palpate: Yes: Soft, Tenderness (Mild upon palpation of RUQ). No: Firm/Rigid , Guarding, Hepatomegaly ...Percussion: No: Fluid Wave ...Rectal Exam: Yes: WNL, Induration (at the 12 o clock). No: Erythema, Guaiac Negative, Hemorrhoids/External Genitourinary: Yes: WNL. No: CVA Tenderness - Left, CVA Tenderness - Right Extremities: Yes: WNL. No: Amputation, Calf Tenderness, Erythema Edema: No Neurological: Yes: WNL, Alert, Oriented. No: Aphasia, Confusion, Dysarthria, Lethargy Psychiatric: Yes: WNL, Alert, Oriented Labs: CBC, BMP 11/10/17 08:10 11/10/17 08:10 INR, PTT INR 1.18 (0.82-1.09) H 11/10/17 08:10 11/10/17 08:10 Total Bilirubin 0.4 D AST 50 H ALT 40 Alkaline Phosphatase 67 <Maryanne Guzman - Last Filed: 11/10/17 17:08> Vital Signs: Vital Signs Temperature 97.7 F 11/10/17 13:37 Pulse Rate 85 11/10/17 13:37 Respiratory Rate 20 11/10/17 13:37 Blood Pressure 128/65 11/10/17 13:37 O2 Sat by Pulse Oximetry (%) 95 11/10/17 09:00 Labs: CBC, BMP 11/10/17 08:10 11/10/17 08:10 INR, PTT INR 1.18 (0.82-1.09) H 11/10/17 08:10 <Collins Bowen - Last Filed: 11/10/17 17:41> Imaging - Results Cat Scan: Report Reviewed, Image Reviewed <Maryanne Guzman - Last Filed: 11/10/17 17:08> Problem List - Problems (1) Transaminitis Code(s): R74.0 - NONSPEC ELEV OF LEVELS OF TRANSAMNS & LACTIC ACID DEHYDRGNSE (2) Abdominal pain Code(s): R10.9 - UNSPECIFIED ABDOMINAL PAIN Qualifiers: Abdominal location: right upper quadrant Qualified Code(s): R10.11 - Right upper quadrant pain (3) AAA (abdominal aortic aneurysm) Code(s): I71.4 - ABDOMINAL AORTIC ANEURYSM, WITHOUT RUPTURE Qualifiers: Presence of rupture: without rupture Qualified Code(s): I71.4 - Abdominal aortic aneurysm, without rupture (4) Hepatic cyst Code(s): K76.89 - OTHER SPECIFIED DISEASES OF LIVER (5) Pancreatic lesion Code(s): K86.9 - DISEASE OF PANCREAS, UNSPECIFIED <Maryanne Guzman - Last Filed: 11/10/17 17:08> Assessment/Plan Patient is a 72 year old female who presented for RUQ abdominal pain with U/S ( last week) done that revealed right iliac graft thrombosis, AAA, and stable hepatic cyst. Previous PET and U/S also showed possible pancreatic lesion but not shown on CT with contrast on this admission. Labs revealed mild transaminitis, which may possible be medication induced by Pravastatin. However , U/S revealed fatty liver disease. Patient was counseled on the importance of weight loss as it can be contributing to her liver disease and mild transaminitis. Patient also advised to follow up at the GI office for MRI of the pancreas to rule out any lesions or pathology as well as to monitor hepatic cyst. <Maryanne Guzman - Last Filed: 11/10/17 17:08> ATTENDING PHYSICIAN STATEMENT I saw and evaluated the patient. I reviewed the resident's note and discussed the case with the resident. I agree with the resident's findings and plan as documented. SUBJECTIVE: 72F admitted for evaluation of enlarged AAA and right iliac graft stenosis. Also with right sided abdominal pain. There is ? of a pancreatic lesion in past not seen on recent imaging OBJECTIVE: Anicteric Hrt RRR Lungs CTA b/l Abd: multiple surgical scars, +BS, No tenderness elicited upon palpation Ext: No LE edema DAVID: induration of anal canal at 12 O'Clock position (prior surgery at childbirth). Guaiac negative brown stool ASSESSMENT: Abdominal pain currently not reproducible H/O colon cancer ? of pancreatic lesion on prior imaging Mild transaminits: fatty infiltration on US PLAN: Advised further outpatient evaluation: Can have outpatient MRI of abdomen with pancreatic protocol to evaluate pancreas further Mild transaminits: suspect secondary to statin therapy and fatty liver. Will continue to monitor. Further serologic work-up as outpatient Last colonoscopy 6 months ago. due for colonoscopy in 2-3 years, then every 5 years I gave her my office information to arrange follow-up <Collins Bowen - Last Filed: 11/10/17 17:41>
--- NOTE | 2017-11-10 15:06 | EKG ---
Test Reason : Blood Pressure : / mmHG Vent. Rate : 092 BPM Atrial Rate : 092 BPM P-R Int : 156 ms QRS Dur : 084 ms QT Int : 356 ms P-R-T Axes : 047 017 022 degrees QTc Int : 440 ms NORMAL SINUS RHYTHM NORMAL ECG WHEN COMPARED WITH ECG OF 12-APR-2015 08:52, NO SIGNIFICANT CHANGE WAS FOUND Confirmed by MD Lantigua Edward ([id number]) on 11/10/2017 3:06:21 PM Referred By: Confirmed By:Yehuda Lantigua MD
--- NOTE | 2017-11-10 16:15 | CONSULT ---
Consult - History of Present Illness History of Present Illness: 72 year old woman followed in my office s/p endovascular aneurysm repair in 2013. She required a femoral-femoral bypass afterward due to iliac limb occlusion. She has been followed with ultrasound and physical exam. She had a CT yesterday which showed the known iliac occlusion and mistakenly stated it was acute. She has been having right upper quadrantr pain. No nausea. An ultrasound measured her aneurysm at 6 cm but this was also incorrect, CT shows it has not grown since her last office study at 5.4 cm. - Past Medical History Cardio/Vascular: Yes: HTN, Hyperlipdemia Gastrointestinal: Yes: Other (rectovaginal fistula s/p repair) ...: No Endocrine: Yes: Diabetes Mellitus, Hypothyroidism (Jeniffer's thyroiditis) - Past Surgical History Past Surgical History: Yes: AAA Repair (04/07), Bypass (fem-pop 04/07 following AAA repair secondary to punctured artery), Cataract Removal, Hernia Repair, Hysterectomy - Alcohol/Substance Use Hx Alcohol Use: No - Smoking History Smoking history: Former smoker Have you smoked in the past 12 months: Yes If you are a former smoker, when did you quit?: 02/2014 - Social History ADL: Independent 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 Medications - Allergies Allergies/Adverse Reactions: Allergies Allergy/AdvReac Type Severity Reaction Status Date / Time hydroxyzine HCl Allergy Verified 11/09/17 19:29 [From Vistaril] hydroxyzine pamoate Allergy Verified 11/09/17 19:29 [From Vistaril] levothyroxine sodium Allergy Vomiting Verified 11/09/17 19:29 [From Synthroid] meperidine HCl [From Demerol] Allergy Verified 11/09/17 19:29 Penicillins Allergy Verified 11/09/17 19:29 metformin AdvReac Nausea Verified 11/09/17 19:29 ADHESIVE TAPE Allergy Severe Hives Uncoded 11/09/17 19:29 - Home Medications Home Medications: Ambulatory Orders Pravastatin Sodium [Pravachol -] 40 mg PO HS 03/18/14 Quinapril HCl [Accupril -] 10 mg PO DAILY 03/18/14 Aspirin Coated [Ecotrin -] 81 mg PO DAILY #0 tablet.ec 11/29/14 Isosorbide Mononitrate [Imdur -] 10 mg PO BID 04/11/15 Metoprolol Succinate [Toprol XL -] 25 mg PO DAILY 04/22/17 Thyroid [[place] Thyroid] 90 mg PO DAILY 04/22/17 Family Disease History - Family Disease History Family Disease History: Heart Disease: Father (CVA, heart disease), Mother, Sister (AAA), CA: Brother (throat cancer) Physical Exam Vital Signs: Vital Signs Temperature 97.7 F 11/10/17 13:37 Pulse Rate 85 11/10/17 13:37 Respiratory Rate 20 11/10/17 13:37 Blood Pressure 128/65 11/10/17 13:37 O2 Sat by Pulse Oximetry (%) 95 11/10/17 09:00 Constitutional: Yes: No Distress Gastrointestinal: Yes: Soft, Tenderness, Epigastrium (right upper with more tenderness over lower right ribs.) Extremities: Yes: Other (Feet warm, no skin changes) Labs: CBC, BMP 11/10/17 08:10 11/10/17 08:10 Imaging - Results Cat Scan: Image Reviewed (Patent EVAR stent with no endoleak. Occluded right iliac artery. Fem-fem bypass was not imaged.) Problem List - Problems (1) Status post vascular bypass Assessment/Plan: Patent EVAR and fem-fem bypass. No new vascular problems identified. I will continue to follow in my office q6 months Code(s): Z98.89 - OTHER SPECIFIED POSTPROCEDURAL STATES * DO NOT USE *
--- NOTE | 2017-11-10 20:42 | DS ---
Physical Exam: SUBJECTIVE: Patient seen and examined at bedside. Only c/o intermittent RUQ pain , occasionally related to food. Without FERNANDEZ, fever, chills, SOB, or changes in urinary or bowel function. Eager to go home OBJECTIVE: Vital Signs Period Temp Pulse Resp BP Sys/Bey Pulse Ox Last 24 Hr 97.7 F-98.3 F 85-99 17-20 128-161/65-107 95-98 PHYSICAL EXAM GENERAL: Pleasant. awake, alert, and fully oriented, in no acute distress. HEAD: Normal with no signs of trauma. EYES: PERRL, extraocular movements intact, sclera anicteric, conjunctiva clear. ENT: Ears normal, nares patent, oropharynx clear without exudates, moist mucous membranes. NECK: Trachea midline, supple. LUNGS: Breath sounds equal, clear to auscultation bilaterally, no wheezes, no crackles, no accessory muscle use. HEART: + tachycardic rate and rhythm, S1, S2 without murmur, rub or gallop. ABDOMEN: Soft, obese, nontender, nondistended, normoactive bowel sounds, no guarding. no bruits appreciated. no pulsatile masses. EXTREMITIES: 2+ pt pulses, warm, +diffusely TTP (lower ext) NEUROLOGICAL: Cranial nerves II through XII grossly intact. Normal speech. facial symmetry PSYCH: Normal mood, normal affect. SKIN: Warm, dry, normal turgor LABS Laboratory Results - last 24 hr 11/09/17 11/09/17 11/09/17 20:53 20:53 20:53 WBC 6.3 RBC 4.13 D Hgb 12.9 D Hct 38.4 D MCV 93.1 MCH 31.3 D MCHC 33.7 RDW 14.9 D Plt Count 228 D MPV 7.6 Absolute Neuts (auto) 4.3 Neutrophils % 68.3 Lymphocytes % 18.8 Monocytes % 8.8 Eosinophils % 3.2 Basophils % 0.9 Nucleated RBC % 0 PT with INR 12.40 INR 1.10 PTT (Actin FS) Sodium 136 Potassium 4.3 Chloride 101 Carbon Dioxide 26 Anion Gap 9 BUN 12 Creatinine 0.8 Creat Clearance w eGFR > 60 Random Glucose 81 Hemoglobin A1c % Calcium 9.6 Total Bilirubin 0.3 AST 51 H ALT 46 Alkaline Phosphatase 86 Troponin I < 0.02 Total Protein 8.2 Albumin 3.7 11/09/17 11/10/17 11/10/17 20:53 03:51 08:10 WBC 5.5 RBC 3.95 Hgb 12.4 Hct 36.9 MCV 93.3 MCH 31.5 MCHC 33.7 RDW 14.9 Plt Count 192 MPV 7.5 Absolute Neuts (auto) 3.5 Neutrophils % 64.6 Lymphocytes % 23.7 D Monocytes % 8.7 Eosinophils % 2.3 Basophils % 0.7 Nucleated RBC % 0 PTT (Actin FS) 29.4 Blood Type B POSITIVE Antibody Screen Negative 11/10/17 11/10/17 11/10/17 08:10 08:10 08:10 PT with INR 13.30 H INR 1.18 H PTT (Actin FS) 32.5 Sodium 135 L Potassium 4.3 Chloride 100 Carbon Dioxide 24 Anion Gap 11 BUN 10 Creatinine 0.9 Creat Clearance w eGFR > 60 Random Glucose 137 H Hemoglobin A1c % 7.0 H Calcium 8.8 Total Bilirubin 0.4 D AST 50 H ALT 40 Alkaline Phosphatase 67 Troponin I Total Protein 7.5 Albumin 3.4 Radiology 11/09/17: CTA: no definite interval change compared to prior CT study of . There is no CT evidence of aortic aneurysm or dissection. at least moderate atherosclerotic coronary artery calcifications are noted. 11/09/17: Abd CT angiography: in comparison to a prior CT study of 12/04/14, note again endovascular repair of infrarenal aortic aneurysm. the right iliac portion of the stent graft demonstrates interval thrombosis. the aneurysm sac appears mildly diminished in size currently measuring 5.3cm, previously 5.7cm. HOSPITAL COURSE: Date of Admission:11/10/17 Date of Discharge: 11/10/17 Admit diagnosis: R iliac graft thrombosis 72 yo female with PMH of stage 4 cancer (finished chemo in may 2017; s/p resection, underwent radiation as well. has chemo port removed), AAA repair with graft (Mar 2015l Dr. Fuller), HTN, who presents with two weeks of persistent R sided abdominal pain. Pt states she began having sharp R sided abdominal pain two weeks ago, sharp with associated burning sensation, in addition to accompanying L shoulder pain. She states that laying down tends to alleviate pain, but prolonged immobilization worsens the pain. No other radiation, exacerbating/alleviating factors. Pain is also a/w food intake. Of note, pt received abdominal u/s one week ago per Dr. Vargas for further evaluation of abdominal pain, notable for AAA of 6.2cm diameter, an increase from 4.9cm on prior PET scan 3 months ago. Pt presented to ED for further imaging evaluation of abdominal pain per Dr. Vargas given recent imaging findings. Pt also endorses 10 months of worsening diffuse claudication in R leg , worsened by exercise and occurring after half a block of ambulation. Pt only takes asa for a/c. Pt admitted for R iliac graft thrombosis. Pt seen by vascular, R iliac graft thrombosis not new. Had been present previously. Hep gtt was d/c. Abd CT angio shows actual decrease in size of aneurysm sac 5.3cm from 5.7cm. Pt will follow with Dr. Fuller in a week, and then every six months for maintenance. Pt with past finding of questionable pancreatic lesion, not observed on recent imaging. Will follow with GI for outpatient MRI of abdomen with pancreatic protocol to eval further. Pt also with mild transaminitis likely 2/2 statin and fatty liver, will continue to monitor as an outpatient.Will also f/u with PCP. Minutes to complete discharge: 44 Discharge Summary Reason For Visit: PAIN OF LOWER EXTREMITY, BACK PAIN Condition: Stable - Instructions Diet, Activity, Other Instructions: You were in the hospital due to abdominal discomfort. You last had an abdominal sonogram last week, which did not show any abnormality with your gall bladder. Your abdominal aorta size was found to be 5.3cm on an abdominal CTA test that was done in the hospital. This is improved from 5.7. You were also found to have a thrombosis near your iliac graft, however this is not a new finding. This was discussed with your vascular surgeon. No intervention was needed. Your visit You were seen by the medicine, gastroenterology (GI), and vascular surgery teams Medications You may continue your home medications. Follow up Please follow up with the following doctors: -your primary care doctor, Dr. Zhong - 1 week to discuss your visit -your vascular surgeon, Dr. Fuller -1 week. You may check in with him during this visit, and will need to follow with him every six months subsequently. -maintenance supervisor 2nd shift, Dr. Ruiz - 1week; you will need an MRI of your pancreas to rule out lesions or pathology, also to monitor your hepatic cyst. you also need colonoscopy frequently -an laborer shaft sinking, Dr. Alejandro - to test for a condition called [place]'s syndrome If you develop shortness of breath, chest pain, or feel as if you will pass out , please go to the hospital. We hope you feel better soon. Referrals: Lisa ROSALES, [place] [Other] - 1 Week Marii Ruiz MD [Staff Physician] - 1 Week Emeterio Alejandro MD [Staff Physician] - 1 Week Yousif Fuller MD [Staff Physician] - 1 Week Disposition: HOME - Home Medications Comprehensive Discharge Medication List: Ambulatory Orders Pravastatin Sodium [Pravachol -] 40 mg PO HS 03/18/14 Quinapril HCl [Accupril -] 10 mg PO DAILY 03/18/14 Aspirin Coated [Ecotrin -] 81 mg PO DAILY #0 tablet.ec 11/29/14 Isosorbide Mononitrate [Imdur -] 10 mg PO BID 04/11/15 Metoprolol Succinate [Toprol XL -] 25 mg PO DAILY 04/22/17 Thyroid [[place] Thyroid] 90 mg PO DAILY 04/22/17 This patient is new to me today: Yes Date on this admission: 11/10/17 Emergency Visit: No Critical Care patient: No - Discharge Referral Referred to [facility] No
[2017-11-10] MEDS ORDERED: ATORVASTATIN CA 10 MG TABLET (FP) PO SCH (22:00)
== END 2017-11-10 18:26 | disposition home or self-care (01) | DRG 316 ==
LOC: JER 19:07 → JERBED 11-10 01:42 → OBSVTOIN 11-10 02:57 → J7W 11-10 06:14
PROVIDERS: ADMIT Internal Medicine; ATTEND Internal Medicine
DX: T82.868A Thrombosis due to vascular prosthetic devices, implants and grafts, initial encounter (principal); R10.11 Right upper quadrant pain; I71.4 Abdominal aortic aneurysm, without rupture; K76.89 Other specified diseases of liver; K86.9 Disease of pancreas, unspecified; Y83.9 Surgical procedure, unspecified as the cause of abnormal reaction of the patient, or of later complication, without mention of misadventure at the time of the procedure; I10 Essential (primary) hypertension; E78.5 Hyperlipidemia, unspecified; E11.9 Type 2 diabetes mellitus without complications; E66.9 Obesity, unspecified; Z68.38 Body mass index [BMI] 38.0-38.9, adult
CPT/HCPCS: 36415; 71275-TC; 74175-TC; 80053; 83036; 84484; 85025; 85610; 85730; 86850; 86900; 86901; 93005; 93010; 99284-25; G0378

== ENCOUNTER 2018-07-06 10:13 | Day surgery (SDC) | payer OTHER, MEDICARE ==
[2018-07-05 14:43] VITALS: BMI 37.5
[2018-07-06 12:20] VITALS: TEMP 98
[2018-07-06 13:07] VITALS: BP 123/58; PULSE 85
--- NOTE | 2018-07-09 18:21 | PATH ---
Surgical Pathology Report Patient Name: NICCI POTTER [facility]. Rec. #: [id number] /Age/Gender: 1945 (Age: 72) / F Account: [id number] Location: ASU-ENDOSCOPY Taken: 07/06/2018 Received: 07/06/2018 Reported: 07/09/2018 Physicians: Jaswinder Bowen D.O. Specimen(s) Received BX SUBMUCOSAL NODULE TRANSVERSE COLON Clinical History History of colon cancer Postoperative diagnosis: Diverticulosis, surgical anastomosis, submucosal nodule transverse colon, hemorrhoids Final Diagnosis TRANSVERSE COLON, SUBMUCOSAL NODULE, BIOPSY: POLYPOID COLONIC MUCOSA WITH SMOOTH MUSCLE PROLIFERATION CONSISTENT WITH SUBMUCOSAL LEIOMYOMA. SEE COMMENT. Comment: Immunohistochemical stains performed at [place], [place] ([id number]) and interpreted at [facility] show the submucosal smooth muscle proliferation is positive for SMA; while negative for CD117 and DOG-1; supporting the above diagnosis. Suggest clinical and endoscopic correlation. Electronically Signed Dari Stewart M.D. Gross Description Received in formalin, labeled "biopsy submucosal nodule transverse colon" are 4 alcazar, irregular portions of soft tissue ranging from 0.1-0.3 cm. in greatest dimension. The specimens are submitted in toto in one cassette. 07/06/201807/06/2018
== END 2018-07-06 13:16 | disposition home or self-care (01) ==
LOC: JASU-ENDO 10:13
PROVIDERS: ATTEND Internal Medicine Gastroenterology
PROC: 0DJD8ZZ Inspection of Lower Intestinal Tract, Via Natural or Artificial Opening Endoscopic (ICD-10-PCS; principal; 2018-07-06 11:15)
DX: Z12.11 Encounter for screening for malignant neoplasm of colon (principal); Z85.038 Personal history of other malignant neoplasm of large intestine; K63.9 Disease of intestine, unspecified; K57.30 Diverticulosis of large intestine without perforation or abscess without bleeding; Z98.0 Intestinal bypass and anastomosis status; K64.8 Other hemorrhoids
CPT/HCPCS: 88305-TC

== ENCOUNTER 2019-03-15 11:34 | Day surgery (SDC) | payer OTHER, MEDICARE ==
[2019-03-15 07:54] VITALS: BMI 35.1
[2019-03-15 14:10] VITALS: TEMP 99
[2019-03-15 15:03] VITALS: BP 146/84; PULSE 84
--- NOTE | 2019-03-17 16:46 | PATH ---
Surgical Pathology Report Patient Name: NICCI POTTER [facility]. Rec. #: [id number] /Age/Gender: 1945 (Age: 73) / F Account: [id number] Location: U-ENDOSCOPY Taken: 03/15/2019 Received: 03/16/2019 Reported: 03/17/2019 Physicians: Jaswinder Bowen D.O. Specimen(s) Received A: BODY/ ANTRUM B: GE JUNCTION Clinical History Diminished appetite, weight loss Postoperative diagnosis: Esophagitis, gastritis Final Diagnosis A. BODY/ ANTRUM, BIOPSY: GASTRIC MUCOSA WITH CHRONIC GASTRITIS. IMMUNOSTAIN FOR H. PYLORI IS NEGATIVE. NEGATIVE FOR INTESTINAL METAPLASIA. B. GE JUNCTION, BIOPSY: GASTROESOPHAGEAL JUNCTIONAL MUCOSA WITH SEVERE REFLUX ESOPHAGITIS, COLUMNAR EPITHELIUM EROSION, AND ACUTE INFLAMMATORY EXUDATE. NEGATIVE FOR INTESTINAL METAPLASIA Electronically Signed Lisa Beaulieu M.D. Gross Description A. Received in formalin, labeled "biopsy body/antrum" are 4 alcazar, irregular portions of soft tissue ranging from 0.3-0.5 cm. in greatest dimension. The specimens are submitted in toto in one cassette. B. Received in formalin, labeled "biopsy GE junction" are 5 alcazar, irregular portions of soft tissue ranging from 0.2-0.4 cm. in greatest dimension. The specimens are submitted in toto in one cassette. /03/16/2019 saudi03/16/2019
== END 2019-03-15 15:04 | disposition home or self-care (01) ==
LOC: JASU-ENDO 11:34
PROVIDERS: ATTEND Internal Medicine Gastroenterology
PROC: 0DB68ZX Excision of Stomach, Via Natural or Artificial Opening Endoscopic, Diagnostic (ICD-10-PCS; 2019-03-15)
PROC: 0DB48ZX Excision of Esophagogastric Junction, Via Natural or Artificial Opening Endoscopic, Diagnostic (ICD-10-PCS; principal; 2019-03-15 11:30)
DX: R10.13 Epigastric pain (principal); K21.9 Gastro-esophageal reflux disease without esophagitis; K44.9 Diaphragmatic hernia without obstruction or gangrene; K29.60 Other gastritis without bleeding; I10 Essential (primary) hypertension; E11.9 Type 2 diabetes mellitus without complications; E06.3 Autoimmune thyroiditis

== ENCOUNTER 2021-04-18 18:03 | Emergency (ER) | payer MEDICARE, OTHER ==
[2021-04-18 18:17] VITALS: BP 156/80; PULSE 99; TEMP 98.5; BMI 32.1
== END 2021-04-18 20:27 | disposition home or self-care (01) ==
LOC: JER 18:03
DX: S89.91XA Unspecified injury of right lower leg, initial encounter (principal); Y99.8 Other external cause status
CPT/HCPCS: 73562-TC-RT-FY; 99283-25

== ENCOUNTER 2024-07-07 04:25 | Day surgery (SDC) | payer OTHER ==
[2024-05-27 08:57] VITALS: BMI 33.4
[2024-07-07 11:41] VITALS: TEMP 97.2
[2024-07-07 12:21] VITALS: RESP 17
[2024-07-07 12:24] VITALS: BP 152/56; PULSE 67
== END 2024-07-07 12:40 | disposition home or self-care (01) ==
LOC: JASU-ENDO 04:25
PROVIDERS: ATTEND Internal Medicine Gastroenterology
PROC: 0DB78ZX Excision of Stomach, Pylorus, Via Natural or Artificial Opening Endoscopic, Diagnostic (ICD-10-PCS; 2024-07-07)
PROC: 0DB28ZX Excision of Middle Esophagus, Via Natural or Artificial Opening Endoscopic, Diagnostic (ICD-10-PCS; 2024-07-07)
PROC: 0DB38ZX Excision of Lower Esophagus, Via Natural or Artificial Opening Endoscopic, Diagnostic (ICD-10-PCS; 2024-07-07)
PROC: 0DB98ZX Excision of Duodenum, Via Natural or Artificial Opening Endoscopic, Diagnostic (ICD-10-PCS; principal; 2024-07-07 09:15)
DX: K44.9 Diaphragmatic hernia without obstruction or gangrene (principal); K21.00 Gastro-esophageal reflux disease with esophagitis, without bleeding; K29.50 Unspecified chronic gastritis without bleeding
CPT/HCPCS: 88305-TC; 88342-TC